=== PATIENT | female | born 1990 | race Caucasian/White ===

== ENCOUNTER 2016-09-12 16:24 | Emergency (ER) | payer MEDICAID, OTHER ==
[2016-09-12 16:24] VITALS: BMI 22.3
[2016-09-12] MEDS ORDERED: Sodium Chloride 0.9% 500 ML IV STA (16:30)
[2016-09-12 16:31] VITALS: TEMP 97.6
[2016-09-12] MEDS ORDERED: Morphine 4 mg/ml ISec IVP STA (16:37)
--- NOTE | 2016-09-12 16:41 | ED PDOC ---
Arrival/HPI - General Chief Complaint: Abdominal Pain Time Seen by Provider: 09/12/16 16:25 Historian: Patient - History of Present Illness Narrative History of Present Illness (Text): 09/12/16 16:38 25 y/o female, no pmh, nkda, c/o rt. lower quadrant abdominal pain x 4-5 days. Aching and cramping pain, associated with nausea but no vomiting, no night sweat , no dizziness, no change in vision, no palpitation or chest pain, no urinary symptoms, no vaginal bleeding or discharge, no other medical or psychological complaints. Past Medical History - Provider Review Nursing Documentation Reviewed: Yes - Travel History If Yes, travel location?: [place] - Infectious Disease Hx of Infectious Diseases: None - Tetanus Immunization Tetanus Immunization: Unknown - Past Medical History Past Medical History: No Previous - Psychiatric Hx Depression: No Hx Emotional Abuse: No Hx Physical Abuse: No Hx Substance Use: No - Past Surgical History Past Surgical History: No Previous - Anesthesia Hx Anesthesia: No - Suicidal Assessment Feels Threatened In Home Enviroment: No Family/Social History - Physician Review Nursing Documentation Reviewed: Yes Family/Social History: Unknown Family HX Smoking Status: Never Smoked Hx Alcohol Use: No Hx Substance Use: No Allergies/Home Meds Allergies/Adverse Reactions: Allergies No Known Allergies Allergy (Verified 09/12/16 16:27) Review of Systems - Review of Systems Constitutional: absent: Fatigue, Fevers Eyes: absent: Vision Changes ENT: absent: Hearing Changes Respiratory: absent: SOB, Cough Cardiovascular: absent: Chest Pain Gastrointestinal: Abdominal Pain, Nausea. absent: Diarrhea, Vomiting Musculoskeletal: absent: Arthralgias, Back Pain, Myalgias Skin: absent: Rash, Pruritis, Skin Lesions Neurological: absent: Headache, Dizziness Physical Exam Vital Signs Reviewed: Yes Vital Signs Temp Pulse Resp BP Pulse Ox 09/12/16 21:42 70 17 125/74 97 09/12/16 21:06 72 17 112/60 100 09/12/16 20:27 75 17 111/62 100 09/12/16 18:24 75 16 107/71 100 09/12/16 16:53 88 18 108/77 100 09/12/16 16:29 97.6 F 86 19 106/79 100 Temperature: Afebrile Blood Pressure: Normal Pulse: Regular Respiratory Rate: Normal Appearance: Positive for: Well-Appearing, Non-Toxic Pain Distress: Severe Mental Status: Positive for: Alert and Oriented X 3 - Systems Exam Head: Present: Atraumatic, Normocephalic Pupils: Present: PERRL Extroacular Muscles: Present: EOMI Conjunctiva: Present: Normal Mouth: Present: Moist Mucous Membranes Neck: Present: Normal Range of Motion Respiratory/Chest: Present: Clear to Auscultation, Good Air Exchange. No: Respiratory Distress, Accessory Muscle Use Cardiovascular: Present: Regular Rate and Rhythm, Normal S1, S2. No: Murmurs Abdomen: Present: Tenderness (+ttp on the rt. lower abdominal quadrant), Normal Bowel Sounds. No: Distention, Peritoneal Signs, Rebound, Guarding Back: Present: Normal Inspection. No: CVA Tenderness Upper Extremity: Present: Normal Inspection. No: Cyanosis, Edema Lower Extremity: Present: Normal Inspection. No: Edema Neurological: Present: GCS=15, Speech Normal, Motor Func Grossly Intact, Gait Normal, Memory Normal Skin: Present: Warm, Dry, Normal Color. No: Rashes Psychiatric: Present: Alert, Oriented x 3, Normal Insight, Normal Concentration Medical Decision Making ED Course and Treatment: 09/12/16 16:40 -labs/ua -CT abdomen/pelvis -transvaginal sonogram -IVF/morphine/zofran -observe and reassesss 09/12/16 17:37 -Labs are non-significant -UA show +UTI 09/12/16 18:04 -Sonogram show bilateral ovarian cysts with less than 2cm, normal blood flow with no torsion noted. Report Date: 09/12/16 21:03 EXAM: CT Abdomen and Pelvis With Intravenous Contrast Dictated and Authenticated by: Alley Churchill MD IMPRESSION: Fullness of the bilateral collecting systems, right greater than left. The right ureteral wall appears to be slightly prominent with wall thickening/enhancement. No obstructing renal calculus is definitively visualized. Cannot exclude recently passed calculus, non-radiopaque nonobstructing punctate calculus on this contrast study. Correlate clinically to evaluate for urinary tract infection which may be the cause of this appearance. Phleboliths noted in the pelvis. 2.3 cm cyst with crenated appearance involving the left adnexa, question recently ruptured follicle/cyst. 09/12/16 21:24 -IV rocephin ordered. -Pain is likely from recently passed stone vs. UTI but there is no obstructing stone. -Pt. is tolerating po and pain is well controlled. -Discharge home with macrobid, motrin, stay hydrated, follow up with your own pmd and urologist within 2 days, return to the ER for any new or worsening signs or symptoms. - Lab Interpretations Lab Results: 09/12/16 16:45 09/12/16 16:45 Lab Results 09/12/16 16:45: Sodium 140, Potassium 3.8, Chloride 104, Carbon Dioxide 23, Anion Gap 17, BUN 9, Creatinine 0.5, Est GFR ( Amer) > 60, Est GFR (Non- Af Amer) > 60, Random Glucose 128 H, Calcium 9.6, Total Bilirubin 0.6, AST 20, ALT 21, Alkaline Phosphatase 40, Total Protein 8.5 H, Albumin 4.6, Globulin 3.9 , Albumin/Globulin Ratio 1.2 09/12/16 16:45: WBC 5.9, RBC 4.30, Hgb 12.2, Hct 35.8 L, MCV 83.3, MCH 28.4, MCHC 34.1, RDW 13.2, Plt Count 302, MPV 11.3 H, Gran % 53.2, Lymph % (Auto) 40.2 H, [place] % (Auto) 5.6, Eos % (Auto) 0.5 L, Baso % (Auto) 0.5, Gran # 3.15, Lymph # 2.4, [place] # 0.3, Eos # 0.0, Baso # 0.03 09/12/16 16:45: Urine Color Yellow, Urine Appearance Slight-cloudy, Urine pH >= 9.0, Ur Specific [place] 1.015, Urine Protein 100 H, Urine Glucose (UA) Negative , Urine Ketones Negative, Urine Blood Moderate H, Urine Nitrate Negative, Urine Bilirubin Negative, Urine Urobilinogen 0.2, Ur Leukocyte Esterase Small H, Urine RBC 5 - 10, Urine WBC 10 - 15, Ur Epithelial Cells 4 - 5, Urine Bacteria Few I have reviewed the lab results: Yes Interpretation: Abnormal lab values (+UTI) - RAD Interpretation Radiology Orders: 09/12/16 16:36 ABDOMEN & PELVIS [ABD PELVIS PO & IV CONTRAST] [CT] Stat 09/12/16 16:37 TRANSVAGINAL [US] Stat HISTORY: RLQ pain COMPARISON: None available. TECHNIQUE: Transvaginal pelvic ultrasound FINDINGS: UTERUS: Measures 6.6 x 4.2 x 4.6 cm. ENDOMETRIUM: Measures 1 cm in diameter. CERVIX: Cervix length measures approximately 3.5 cm. RIGHT OVARY: Measures 2.2 x 1.8 x 2.0 cm. Blood flow is demonstrated. 0.8 x 0.7 x 0.8 cm follicle/cyst. LEFT OVARY: Measures 2.4 x 1.9 x 2.1 cm. Blood flow is demonstrated. Two cysts measuring approximately 1.1 cm and 0.8 cm. FREE FLUID: No significant free fluid noted. OTHER FINDINGS: None. IMPRESSION: No acute findings. Ovarian cysts/follicles as above. FINDINGS: The liver, spleen, pancreas and adrenal glands demonstrate no acute abnormalities. Fullness of the bilateral collecting systems, right greater than left. The right ureteral wall appears to be slightly prominent with wall thickening/enhancement. No obstructing renal calculus is definitively visualized. Cannot exclude recently passed calculus, non-radiopaque nonobstructing calculus. Correlate clinically to evaluate for urinary tract infection. Phleboliths noted in the pelvis. The aorta is unremarkable. Enteric contrast is in the stomach and small bowel at the time of imaging, limiting evaluation distally. The small and large bowel as visualized demonstrate no evidence of obstruction or clear focus of inflammation. Normal caliber appendix. 2.3 cm cyst with crenated appearance involving the left adnexa, question recently ruptured follicle/cyst. IMPRESSION: Fullness of the bilateral collecting systems, right greater than left. The right ureteral wall appears to be slightly prominent with wall thickening/enhancement. No obstructing renal calculus is definitively visualized. Cannot exclude recently passed calculus, non-radiopaque nonobstructing punctate calculus on this contrast study. Correlate clinically to evaluate for urinary tract infection which may be the cause of this appearance. Phleboliths noted in the pelvis. 2.3 cm cyst with crenated appearance involving the left adnexa, question recently ruptured follicle/cyst. Thank you for allowing us to participate in the care of your patient. Dictated and Authenticated by: Alley Churchill MD 09/12/2016 9:03 PM Eastern Time ([place] & [place]) Client Hr Manager: Radiologist - Medication Orders Current Medication Orders: Discontinued Medications Hydromorphone HCl (Dilaudid) 1 mg IVP STAT STA Stop: 09/12/16 20:58 Last Admin: 09/12/16 21:11 Dose: 1 mg Sodium Chloride (Sodium Chloride 0.9%) 500 mls @ 999 mls/hr IV .Q31M STA Stop: 09/12/16 17:00 Last Admin: 09/12/16 16:50 Dose: 999 mls/hr Ceftriaxone Sodium (Rocephin 1 Gram Ivpb) 1 gm in 100 mls @ 200 mls/hr IVPB STAT STA PRN Reason: Protocol Stop: 09/12/16 21:42 Last Admin: 09/12/16 21:40 Dose: 200 mls/hr Iohexol (Omnipaque 240 (50 Ml)) Confirm Administered Dose 50 ml .ROUTE .STK-MED ONE Stop: 09/12/16 17:22 Iohexol (Omnipaque 350 100 Ml) Confirm Administered Dose 350 mg .ROUTE .STK-MED ONE Stop: 09/12/16 19:41 Morphine Sulfate (Morphine) 4 mg IVP STAT STA Stop: 09/12/16 16:38 Last Admin: 09/12/16 16:52 Dose: 4 mg Ondansetron HCl (Zofran Inj) 4 mg IVP STAT STA Stop: 09/12/16 16:38 Last Admin: 09/12/16 16:53 Dose: 4 mg Ondansetron HCl (Zofran Inj) 4 mg IVP STAT STA Stop: 09/12/16 20:58 Last Admin: 09/12/16 21:10 Dose: 4 mg - PA / BI CONSULTANT / Resident Statement / has reviewed & agrees with the documentation as recorded. Disposition/Present on Arrival - Present on Arrival Any Indicators Present on Arrival: No History of DVT/PE: No History of Uncontrolled Diabetes: No Urinary Catheter: No History of Decub. Ulcer: No History Surgical Site Infection Following: None - Disposition Have Diagnosis and Disposition been Completed?: Yes Diagnosis: Ovarian cyst, UTI (urinary tract infection) Disposition: HOME/ ROUTINE Disposition Time: 21:25 Patient Plan: Discharge Condition: IMPROVED Additional Instructions: -Discharge home with macrobid, motrin, stay hydrated, follow up with your own pmd and urologist within 2 days, return to the ER for any new or worsening signs or symptoms. Prescriptions: Ibuprofen [Motrin Tab] 600 mg PO QID PRN #24 tab PRN Reason: Other Nitrofurantoin Macrocrystals [Macrobid] 100 mg PO BID #14 cap Referrals: Dori Wolf DO [Primary Care Provider] - Follow up with primary Whit Joyner MD [Staff Provider] - Follow up with primary Helen Santos MD [Staff Provider] - Follow up with primary Forms: WORK NOTE
[2016-09-12 17:18] LABS: BASO # 0.03 K/mm3 (0.0-2.0); BASO % 0.5 % (0.0-3.0); EOS % 0.5 % (1.5-5.0); GRAN # 3.15 (1.4-6.5); GRAN % 53.2 % (50.0-68.0); HEMOGLOBIN 12.2 gm/dL (12.0-16.0); LYMPH # 2.4 (1.2-3.4); LYMPH % 40.2 % (22.0-35.0); MEAN CELL VOLUME 83.3 fL (80.0-105.0); MEAN CORPUSCULAR HEMOGLOBIN 28.4 pg (25.0-35.0); MEAN CORPUSCULAR HGB CONC 34.1 g/dl (31.0-37.0); MEAN PLATELET VOLUME 11.3 fl (7.0-11.0); MONO # 0.3 (0.1-0.6); MONO % 5.6 % (1.0-6.0); PLATELET COUNT 302 10^3/uL (120.0-450.0); RED CELL DISTRIBUTION WIDTH 13.2 % (11.5-14.5); WHITE BLOOD COUNT 5.9 10^3/ul (4.5-11.0)
[2016-09-12 17:21] LABS: PH,URINE >=9.0 (4.7-8.0); URINE BILIRUBIN NEGATIVE (NEGATIVE); URINE BLOOD MODERATE (NEGATIVE); URINE GLUCOSE (UA) NEGATIVE (NEGATIVE); URINE LEUKOCYTE ESTERASE SMALL Leu/uL (NEGATIVE); URINE NITRATE NEGATIVE (NEGATIVE); URINE PROTEIN 100 mg/dL (<30 mg/dL); URINE UROBILINOGEN 0.2 E.U./dL (<1 E.U./dL)
[2016-09-12] MEDS ORDERED: Iohexol 240 (50 ml) ONE (17:21)
[2016-09-12 17:24] LABS: ALB/GLOB RATIO 1.2 (1.1-1.8); ALBUMIN 4.6 g/dL (3.0-4.8); ALT/SGPT 21 U/L (7-56); AST/SGOT 20 U/L (15-39); BLOOD UREA NITROGEN 9 mg/dL (7-21); CALCIUM 9.6 mg/dL (8.4-10.5); GFR AFRICAN-AMERICAN > 60; GFR NON-AFRICAN AMERICAN > 60
[2016-09-12 17:26] LABS: URINE APPEARANCE SLIGHT-CLOUDY (CLEAR); URINE COLOR YELLOW (YELLOW)
[2016-09-12 17:39] LABS: URINE BACTERIA FEW (NEG)
--- NOTE | 2016-09-12 18:03 | US ---
HISTORY: RLQ pain COMPARISON: None available. TECHNIQUE: Transvaginal pelvic ultrasound FINDINGS: UTERUS: Measures 6.6 x 4.2 x 4.6 cm. ENDOMETRIUM: Measures 1 cm in diameter. CERVIX: Cervix length measures approximately 3.5 cm. RIGHT OVARY: Measures 2.2 x 1.8 x 2.0 cm. Blood flow is demonstrated. 0.8 x 0.7 x 0.8 cm follicle/cyst. LEFT OVARY: Measures 2.4 x 1.9 x 2.1 cm. Blood flow is demonstrated. Two cysts measuring approximately 1.1 cm and 0.8 cm. FREE FLUID: No significant free fluid noted. OTHER FINDINGS: None. IMPRESSION: No acute findings. Ovarian cysts/follicles as above.
[2016-09-12] MEDS ORDERED: Iohexol 350 MG/100 ML VIAL ONE (19:40)
[2016-09-12 20:28] VITALS: RESP 17
[2016-09-12] MEDS ORDERED: HYDROmorphone 1 mg/ml ISec IVP STA (20:57)
--- NOTE | 2016-09-12 21:03 | CT ---
EXAM: CT Abdomen and Pelvis With Intravenous Contrast CLINICAL HISTORY: 25 years old, female; Pain; Abdominal pain; Localized; Right lower quadrant (rlq); Additional info: Rlq pain x 4-5 days TECHNIQUE: Axial computed tomography images of the abdomen and pelvis with intravenous contrast. This CT exam was performed using one or more of the following dose reduction techniques: automated exposure control, adjustment of the mA and/or kV according to patient size, and/or use of iterative reconstruction technique. Coronal and sagittal reformatted images were created and reviewed. CONTRAST: 92 mL of OMNI 350 administered intravenously. COMPARISON: No relevant prior studies available. FINDINGS: The liver, spleen, pancreas and adrenal glands demonstrate no acute abnormalities. Fullness of the bilateral collecting systems, right greater than left. The right ureteral wall appears to be slightly prominent with wall thickening/enhancement. No obstructing renal calculus is definitively visualized. Cannot exclude recently passed calculus, non-radiopaque nonobstructing calculus. Correlate clinically to evaluate for urinary tract infection. Phleboliths noted in the pelvis. The aorta is unremarkable. Enteric contrast is in the stomach and small bowel at the time of imaging, limiting evaluation distally. The small and large bowel as visualized demonstrate no evidence of obstruction or clear focus of inflammation. Normal caliber appendix. 2.3 cm cyst with crenated appearance involving the left adnexa, question recently ruptured follicle/cyst. IMPRESSION: Fullness of the bilateral collecting systems, right greater than left. The right ureteral wall appears to be slightly prominent with wall thickening/enhancement. No obstructing renal calculus is definitively visualized. Cannot exclude recently passed calculus, non-radiopaque nonobstructing punctate calculus on this contrast study. Correlate clinically to evaluate for urinary tract infection which may be the cause of this appearance. Phleboliths noted in the pelvis. 2.3 cm cyst with crenated appearance involving the left adnexa, question recently ruptured follicle/cyst.
[2016-09-12] MEDS ORDERED: cefTRIAXone 1 gm 1 GM/100 ML BAG IVPB STA (21:13)
[2016-09-12 21:42] VITALS: BP 125/74; PULSE 70; O2SAT 97
== END 2016-09-12 21:52 | disposition home or self-care (01) ==
LOC: ED 16:24
DX: N83.209 Unspecified ovarian cyst, unspecified side (principal); N39.0 Urinary tract infection, site not specified
CPT/HCPCS: 74177; 76830; 80053; 81001; 85025; 96374; 96375; 96376; 99285; J0696; J1170; J2270; J2405; J7040; Q9966; Q9967

== ENCOUNTER 2016-12-13 13:07 | Emergency (ER) | payer OTHER ==
[2016-12-13 13:21] VITALS: BMI 22.6
[2016-12-13 13:23] VITALS: RESP 18; TEMP 99.1; O2SAT 99
[2016-12-13] MEDS ORDERED: Sodium Chloride 0.9% 1,000 ML IV STA (13:43)
--- NOTE | 2016-12-13 13:52 | ED PDOC ---
Arrival/HPI - General Historian: Patient - History of Present Illness Time/Duration: 24 hours Symptom Onset: Sudden Symptom Course: Intermittent Quality: Throbbing Severity Level: Moderate Activities at Onset: Rest Context: Home - General Chief Complaint: Female Genitourinary Time Seen by Provider: 12/13/16 13:20 - History of Present Illness Narrative History of Present Illness (Text): 12/13/16 13:49 26F w/PMH sig for nephrolithiasis evaluate for bilat back pain x 1 day. Pt reports sudden onset of Robert back pain, moderate, radiates to lower abdominal quadrants bilaterally. Pt reports similar pain 1 mo ago when she had previous episode of nephrolithiasis. Pain alleviated by Ibuprofen. Admits to dysuria, hematuria, urinary frequency. Has not noted any stones in urine. Denies N & V , F & C, SOB, Chest pain, changes in bowel habits, other complaints. PMH: hx nephrolithiasis PSH: Denies All: NDKA SH: Denies ETOH, tobacco or illicit drug use LMP: 3 wks ago PMD: Dr. Mccrary (Alyssia Patel) Associated Symptoms (Text): 12/13/16 13:52 see HPI (Alyssia Patel) Past Medical History - Provider Review Nursing Documentation Reviewed: Yes - Infectious Disease Hx of Infectious Diseases: None - Tetanus Immunization Tetanus Immunization: Unknown - Past Medical History Past Medical History: No Previous - Psychiatric Hx Depression: No Hx Emotional Abuse: No Hx Physical Abuse: No Hx Substance Use: No - Past Surgical History Past Surgical History: No Previous - Anesthesia Hx Anesthesia: No - Suicidal Assessment Feels Threatened In Home Enviroment: No Family/Social History - Physician Review Nursing Documentation Reviewed: Yes Family/Social History: No Known Family HX Smoking Status: Never Smoked Hx Alcohol Use: No Hx Substance Use: No Allergies/Home Meds Allergies/Adverse Reactions: Allergies No Known Allergies Allergy (Verified 09/12/16 16:27) Review of Systems - Review of Systems Constitutional: Normal. absent: Fevers Eyes: Normal. absent: Vision Changes ENT: Normal. absent: Sore Throat Respiratory: Normal. absent: SOB Cardiovascular: Normal. absent: Chest Pain Gastrointestinal: Abdominal Pain (lower quadrants). absent: Normal, Constipation, Diarrhea, Nausea, Vomiting, Hematochezia, Hematemesis Genitourinary Female: Dysuria, Frequency, Hematuria, Urine Output Changes. absent: Normal Musculoskeletal: Back Pain Skin: Normal. absent: Rash Neurological: Normal. absent: Headache Physical Exam Vital Signs Reviewed: Yes Temperature: Afebrile Blood Pressure: Normal Pulse: Regular Respiratory Rate: Normal Pain Distress: None Mental Status: Positive for: Alert and Oriented X 3 - Systems Exam Head: Present: Atraumatic, Normocephalic Extroacular Muscles: Present: EOMI Conjunctiva: Present: Normal Mouth: Present: Moist Mucous Membranes Nose (External): Present: Atraumatic Neck: Present: Normal Range of Motion Respiratory/Chest: Present: Clear to Auscultation, Good Air Exchange. No: Respiratory Distress, Accessory Muscle Use Cardiovascular: Present: Regular Rate and Rhythm, Normal S1, S2. No: Murmurs Abdomen: Present: Tenderness (mild, over lower quadrants), Normal Bowel Sounds. No: Distention, Peritoneal Signs Back: Present: CVA Tenderness (bilat). No: Normal Inspection Upper Extremity: Present: Normal Inspection, Normal ROM. No: Cyanosis, Edema Lower Extremity: Present: Normal Inspection, Normal ROM. No: Edema Neurological: Present: GCS=15, CN II-XII Intact, Speech Normal Skin: Present: Warm, Dry, Normal Color. No: Rashes Psychiatric: Present: Alert, Oriented x 3, Normal Insight, Normal Concentration Vital Signs Temp Pulse Resp BP Pulse Ox 12/13/16 13:23 99.1 F 96 H 18 116/78 99 Medical Decision Making ED Course and Treatment: Patient Seen With Resident: In agreement with resident note which contains more details about the patient. Patient was seen and evaluated with resident. Came up with plan and treatment together. (Lynnette Kapoor) 12/13/16 13:56 Pt seen/evaluated. Case DW ED attending. Pt will have renal U/S, UA, Urine culture, pain management with IVF. 12/13/16 14:38 Pt re-evaluated- pain now absent after medication. Instructed patient that she should follow up with her PMD after discharge from ED. Awaiting ultrasound results. (Alyssia Patel) - Lab Interpretations Lab Results: Lab Results 12/13/16 13:44: Urine Color Yellow, Urine Appearance Turbid, Urine pH 6.0, Ur Specific [place] >= 1.030, Urine Protein 30 H, Urine Glucose (UA) Negative, Urine Ketones Negative, Urine Blood Moderate H, Urine Nitrate Negative, Urine Bilirubin Negative, Urine Urobilinogen 0.2, Ur Leukocyte Esterase Small H, Urine RBC 0 - 2, Urine WBC 10 - 15, Ur Epithelial Cells Many, Urine Bacteria Few , Urine HCG, Qual Negative - RAD Interpretation Radiology Orders: 12/13/16 13:43 RENAL [US] Stat - Medication Orders Current Medication Orders: Discontinued Medications Sodium Chloride (Sodium Chloride 0.9%) 1,000 mls @ 999 mls/hr IV .Q1H1M STA Stop: 12/13/16 14:43 Last Admin: 12/13/16 13:53 Dose: 999 mls/hr eMAR Start Stop Document 12/13/16 13:53 SE (Rec: 12/13/16 13:53 [id number]) Intravenous Solution Start Date 12/13/16 Start Time 13:53 Ketorolac Tromethamine (Toradol) 30 mg IVP STAT STA Stop: 12/13/16 13:44 Last Admin: 12/13/16 13:56 Dose: 30 mg MAR Pain Assessment Document 12/13/16 13:56 SE (Rec: 12/13/16 13:56 [id number]) Pain Reassessment Is this a pain reassessment? No Sleep Is patient sleeping during reassessment? No Presence of Pain Presence of Pain Yes Pain Scale Used Pain Scale Used Numeric IVP Administration Document 12/13/16 13:56 SE (Rec: 12/13/16 13:56 [id number]) Charges for Administration # of IVP Administrations 1 Tamsulosin HCl (Flomax) 0.4 mg PO STAT STA Stop: 12/13/16 13:46 Last Admin: 12/13/16 14:47 Dose: 0.4 mg Disposition/Present on Arrival - Present on Arrival Any Indicators Present on Arrival: No History of DVT/PE: No History of Uncontrolled Diabetes: No Urinary Catheter: No History of Decub. Ulcer: No History Surgical Site Infection Following: None - Disposition Have Diagnosis and Disposition been Completed?: Yes Disposition Time: 15:02 Patient Plan: Discharge - Disposition Diagnosis: Bilateral nephrolithiasis, Hematuria Disposition: HOME/ ROUTINE Patient Problems: Current Active Problems Problem Status Onset Bilateral nephrolithiasis Acute Condition: STABLE Discharge Instructions (ExitCare): Kidney Stones (ED), Renal Colic (ED), How to Strain Your Urine (ED), Flank Pain (ED), Kidney Ultrasound (ED) Additional Instructions: Please make an appointment with your primary care provider in the next 1-2 weeks as discussed. Please drink 8-10 glasses of water daily. Decrease the amount of salt in your diet. You are being referred to a urologist (a specialist of the urinary system)- when you make an appointment, let them know you have been seen here and were referred from the emergency department. Prescriptions: Ciprofloxacin HCl [Cipro] 250 mg PO Q12H #6 tablet Ibuprofen [Motrin] 600 mg PO QID #24 tab Referrals: Faheem Andres MD [Staff Provider] - Follow up with primary Forms: [facility] (Dominican), WORK NOTE
[2016-12-13 14:12] LABS: URINE BILIRUBIN NEGATIVE (NEGATIVE); URINE BLOOD MODERATE (NEGATIVE); URINE GLUCOSE (UA) NEGATIVE (NEGATIVE); URINE KETONE NEGATIVE (NEGATIVE); URINE LEUKOCYTE ESTERASE SMALL Leu/uL (NEGATIVE); URINE PROTEIN 30 mg/dL (<30 mg/dL); URINE UROBILINOGEN 0.2 E.U./dL (<1 E.U./dL)
[2016-12-13 14:16] LABS: URINE APPEARANCE TURBID (CLEAR); URINE COLOR YELLOW (YELLOW)
[2016-12-13 14:19] LABS: URINE BACTERIA FEW (NEG); URINE EPITHELIAL CELLS MANY /hpf (0-5); URINE RBC 0 - 2 /hpf (0-2)
--- NOTE | 2016-12-13 14:47 | US ---
PROCEDURE: Ultrasound of the Kidneys HISTORY: back pain COMPARISON: None available. TECHNIQUE: Sonogram of the kidneys. FINDINGS: RIGHT KIDNEY: Measures: 12.8 cm. Normal in size, contour and echogenicity. No stone, solid mass lesion or hydronephrosis visualized. LEFT KIDNEY: Measures: 12.3 cm. Normal in size, contour and echogenicity. No stone, solid mass lesion or hydronephrosis visualized. OTHER FINDINGS: None. IMPRESSION: No evidence of urinary tract obstruction.
[2016-12-13 15:12] VITALS: BP 118/74; PULSE 89
== END 2016-12-13 15:21 | disposition home or self-care (01) ==
LOC: ED 13:07
DX: N20.0 Calculus of kidney (principal); R31.9 Hematuria, unspecified
CPT/HCPCS: 76770; 81001; 84703; 87086; 87181; 96374; 99285; J1885; J7040